=== PATIENT | female | born 1935 | race Caucasian/White ===

== ENCOUNTER 2024-06-20 11:34 | Emergency (ER) | payer MEDICARE, SELFPAY ==
[2024-06-20 11:37] VITALS: BP 147/66
[2024-06-20 14:13] VITALS: BP 140/73
--- NOTE | 2024-06-20 14:19 | ED.MUSCINJ ---
HPI-Injury
General
Chief Complaint: Fall
Source: patient
Time Seen by Provider: 06/20/24 14:03
History of Present Illness-Injury
Initial Injury comments:
88-year-old female presents after a fall. She fell backwards onto a sidewalk. She hit her head. She was noted to have a laceration to the posterior scalp and sent here for evaluation. She is not anticoagulated. She complains of swelling to the
right hand. No known loss of consciousness. No chest pain or shortness of breath. No other complaints
Phy Exam
Physical Exam
Physical Exam:
General: Well-appearing female no acute respiratory distress
HEENT: Normocephalic 1.5 cm laceration left side posterior scalp. Pupils equal round reactive to light
Heart: Regular rate and rhythm lungs: Clear no wheeze
Neurologic exam: Alert no facial asymmetry good strength to the upper and lower extremities
MSK: Right hand ecchymotic and swollen slightly tender over the distal fifth metacarpal. No deformities. Able to make a full fist
Injury Course
Orders/Labs/Results
Orders:
Orders
06/20/24 11:41
CT Cervical Spine W/o Iv Contr Urgent
Comment:
Reason For Exam: fall on plavix
CT Head W/o Iv Contrast Urgent
Comment:
Reason For Exam: fall on plavix
Hand, Right 3 View [CR Hand - Right Min 3 Views] Urgent
Comment:
Reason For Exam: fall
MDM/Problems Addressed
Differential Diagnosis Includes:
Fall. Mechanical in nature. Head strike. Consider fracture versus intracranial hemorrhage versus cervical spine injury. CT of head and cervical spine were ordered and reviewed and are negative for acute findings. There is also injury to the
right hand consider hematoma versus fracture. X-rays were negative for fracture.
The laceration on her scalp was irrigated with saline anesthetized with 1% lidocaine with epinephrine and closed with 4 skin fede. Patient stable for discharge back to facility
*Critical Care Note
Total Time (30-74mins, 75-104mins- exclusive of procedures): Not Applicable
ED Attending Note
-
Portions of this chart may have been created with voice recognition software.� Occasional wrong word or��sound alike� substitutions may have occurred due to the inherent limitations of voice recognition software.
Discharge Plan
Departure
Patient Disposition: Home (Routine Discharge)
Date of Disposition: 06/20/24
Time of Disposition: 15:29
Patient with high blood pressure during this ER visit?: No
Discharge Problem:
Laceration
Instructions: Laceration Repair With Fede (DC)
Referrals:
Vianey Steen, [Family Provider] -
Activity Restrictions/Additional Instructions:
. Have fede removed in 7 days. You may take Tylenol if needed for pain. Return if worse
Interventions
Interventions:
*Risk Screen - Suicide Last Done: 06/20/24 11:37
*General Assessment Last Done: 06/20/24 14:39
*Neglect/Abuse Screening Last Done: 06/20/24 11:37
*ED COVID-19 Vaccine History Last Done: 06/20/24 14:39
ED-Musculoskeletal Assessment Last Done: 06/20/24 14:39
ED- Neurological Assessment Last Done: 06/20/24 14:39
ED-Skin Assessment Last Done: 06/20/24 14:39
Discharge Date and Time
Print Language: CHINESE
[2024-06-20 15:00] VITALS: BP 141/67
[2024-06-20 16:00] VITALS: BP 142/71
== END 2024-06-20 19:21 | disposition home or self-care (01) ==
LOC: EMR 11:34
PROVIDERS: EMERGENCY PHYSICIAN Emergency Medicine; FAMILY PHYSICIAN Hospitalist
DX: S01.01XA Laceration without foreign body of scalp, initial encounter (principal); W19.XXXA Unspecified fall, initial encounter; Z79.02 Long term (current) use of antithrombotics/antiplatelets
CPT/HCPCS: 99284; 70450; 72125; 73130